=== PATIENT | male | born 1965 | race Caucasian/White ===

== ENCOUNTER → 2016-03-30 | Outpatient (CLI) | payer BC ==
[~2016-03-30] VITALS: Ht 180.3 cm; Wt 92.0 kg
[~2016-03-30] MED LIST: NS 1,000 ML IV SCH; PROPOFOL 200 MG/20 ML VIAL As Ordered ONE
--- NOTE | 2016-03-30 09:07 | ROOR ---
Patient Name: Stu Huertas Procedure Date: 03/30/2016 8:46 AM Date of : 1965 Age: 50 Room: [facility] Gender: Male Note Status: Finalized Procedure: Colonoscopy Indications: Screening for colorectal malignant neoplasm Providers: Samy LARA MD Referring MD: Nicola Varma MD Requesting Provider: Medicines: Monitored Anesthesia Care Complications: No immediate complications. Procedure: Pre-Anesthesia Assessment: - The heart rate, respiratory rate, oxygen saturations, blood pressure, adequacy of pulmonary ventilation, and response to care were monitored throughout the procedure. The Colonoscope was introduced through the anus and advanced to the cecum, identified by appendiceal orifice and ileocecal valve. The colonoscopy was performed without difficulty. The patient tolerated the procedure well. The quality of the bowel preparation was good. Findings: The perianal and digital rectal examinations were normal. (Exam: Complete, Prep: Good or Excellent.) A 4 mm polyp was found in the splenic flexure. The polyp was sessile. The polyp was removed with a cold snare. Resection and retrieval were complete. Many medium-mouthed diverticula were found in the sigmoid colon. There was evidence of diverticular spasm. Small Internal Hemorrhoids. The exam was otherwise without abnormality on direct and retroflexion views. Impression: - (Exam: Complete, Prep: Good or Excellent.) - One 4 mm polyp at the splenic flexure, removed with a cold snare. Resected and retrieved. - Diverticulosis in the sigmoid colon. - Small Internal Hemorrhoids. - The examination was otherwise normal on direct and retroflexion views. Recommendation: - Repeat colonoscopy in 5 years for surveillance. Samy Lara MD Samy LARA MD 03/30/2016 9:06:50 AM This report has been signed electronically. Number of Addenda: 0 Note Initiated On: 03/30/2016 8:46 AM Estimated Blood Loss: Estimated blood loss: none.
[2016-03-30 09:20] VITALS: BP 123/87
== END | disposition home or self-care (01) ==
LOC: M OPP 08:05
PROVIDERS: ATTEND Internal Medicine Gastroenterology
DX: Z12.11 Encounter for screening for malignant neoplasm of colon (principal); D12.3 Benign neoplasm of transverse colon; K57.30 Diverticulosis of large intestine without perforation or abscess without bleeding; K64.8 Other hemorrhoids

== ENCOUNTER → 2016-10-14 | Outpatient (REF) | payer BC ==
[2016-10-14 12:12] LABS: ALBUMIN 3.9 GM/DL (3.2-5.2); ALBUMIN/GLOBULIN RATIO 1.26 (1.00-1.93); ALKALINE PHOSPHATASE 86 U/L (45-117); ALT/SGPT 41 U/L (12-78); ANION GAP 8 MEQ/L (8-16); AST/SGOT 23 U/L (15-37); BILIRUBIN,TOTAL 0.6 MG/DL (0.2-1.0); BLOOD UREA NITROGEN 16 MG/DL (7-18); CALCIUM LEVEL 9.5 MG/DL (8.5-10.1); CARBON DIOXIDE LEVEL 26 MEQ/L (21-32); CHLORIDE LEVEL 111 MEQ/L (98-107); CHOLESTEROL LEVEL 166 MG/DL (<200); CREATININE FOR GFR 0.79 MG/DL (0.70-1.30); GLOMERULAR FILTRATION RATE > 60.0 (>56); GLUCOSE, FASTING 111 MG/DL (70-105); POTASSIUM SERUM 4.2 MEQ/L (3.5-5.1); SODIUM LEVEL 145 MEQ/L (136-145); TRIGLYCERIDES LEVEL 136 MG/DL (<150)
== END ==
LOC: M SFHCCLAY 07:20
PROVIDERS: ATTEND Family Medicine
DX: E78.2 Mixed hyperlipidemia (principal); Z12.5 Encounter for screening for malignant neoplasm of prostate; I10 Essential (primary) hypertension
CPT/HCPCS: 80053; 80061; 84443; G0103

== ENCOUNTER 2018-06-27 17:19 | Emergency (ER) | payer BC ==
[~2018-06-27] VITALS: Ht 180.3 cm; Wt 84.5 kg
--- NOTE | 2018-06-27 18:45 | REP ---
RIGHT KNEE, FIVE VIEWS: HISTORY: Knee pain. Postoperative change is present. There is no acute fracture or dislocation. There is moderate narrowing of the medial knee joint space and mild narrowing of the lateral knee joint space. There is mild narrowing of the patellofemoral joint space. Osteophytes are present on the femur, tibia and patella. IMPRESSION:Degenerative change as described above. Electronically Signed by Nicola Trevizo MD 06/27/2018 07:08 P
[2018-06-27] MEDS ORDERED: KETOROLAC 30 MG/ML VIAL (J1885) IV ONE (19:00)
[2018-06-27] MEDS ORDERED: NS 1,000 ML IV ONE (19:00)
[2018-06-27 19:37] LABS: BASO # 0.1 10^3/uL (0.0-0.2); BASO % 0.4 % (0.0-1.0); EOS % 0.2 % (0.0-3.0); HEMATOCRIT 44.4 % (42.0-52.0); HEMOGLOBIN 15.2 g/dl (13.5-17.5); LYMPH % 6.2 % (24.0-44.0); MEAN CORPUSCULAR HEMOGLOBIN 31.2 pg (27.0-33.0); MEAN CORPUSCULAR HGB CONC 34.2 g/dl (32.0-36.5); MEAN CORPUSCULAR VOLUME 91.2 fl (80.0-96.0); MONO # 1.3 10^3/uL (0.0-0.8); MONO % 7.6 % (0.0-5.0); NEUTROPHILS # 14.4 10^3/uL (1.8-7.7); NEUTROPHILS % 85.2 % (36.0-66.0); PLATELET COUNT, AUTOMATED 218 10^3/uL (150-450); RED BLOOD COUNT 4.87 10^6/uL (4.30-6.10); WHITE BLOOD COUNT 16.9 10^3/uL (4.0-10.0)
[2018-06-27] MEDS ORDERED: MORPHINE 4 MG/ML 1ML VIAL/SYRINGE (J2270) IV ONE (20:00)
[2018-06-27 20:06] LABS: BLOOD UREA NITROGEN 20 MG/DL (7-18); CALCIUM LEVEL 8.4 MG/DL (8.5-10.1); CARBON DIOXIDE LEVEL 27 MEQ/L (21-32); CHLORIDE LEVEL 105 MEQ/L (98-107); CREATININE FOR GFR 0.85 MG/DL (0.70-1.30); GLOMERULAR FILTRATION RATE > 60.0 (>56); GLUCOSE, FASTING 122 MG/DL (70-100); POTASSIUM SERUM 4.4 MEQ/L (3.5-5.1); SODIUM LEVEL 137 MEQ/L (136-145); URIC ACID 6.1 MG/DL (3.5-7.2)
[2018-06-27 21:27] LABS: MUCIN CLOT TEST 4+ (4+)
[2018-06-27 21:30] LABS: SOURCE, BODY FLUID URIC ACID RT KNEE
--- NOTE | 2018-06-27 21:40 | ER ---
DATE OF CONSULT: 06/27/2018 CHIEF COMPLAINT: Right knee pain and swelling. HISTORY OF PRESENT ILLNESS: This 53-year-old man was seen today in the emergency department at [facility]. He complains about 24 hours increase of pain and swelling to his right knee. 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 He feels like his knee was a little bit achy over the last week, as well as feeling a little bit of under the weather coryza-type symptoms. He was bit with a tick about a week and the tick swelled up. He removed the tick. Now, he is complaining about 24 hours of increased quite a bit of swelling and pain to the knee. There is no redness. There is no other constitutional symptoms at this point such as fever, chills, sweats at night, weight loss or other constitutional symptoms other than knee pain. There is no other hot, swollen joints. He has had two times gout flare in the past in his right great toe but this was back when he was eating quite a few rich foods, a few Thanksgivings ago. Now, he does not use any alcohol and tries to live by a more vegan diet, but he does eat quite a bit of legumes it sounds like. He has also been started on treatment with doxycycline for his tick bite. He has also had a history of anterior cruciate ligament (ACL) reconstruction on the same knee, but this was remotely, many years ago back in 1994 by a surgeon in [place], [place]. He has not had any trauma to the knee. PAST MEDICAL HISTORY: Healthy. MEDICATIONS: None. ALLERGIES: No known drug allergies. SURGICAL HISTORY: Right knee ACL reconstruction [address] Sal[address] in [place], [place]. This was a BTB graft. No concerns with that. He also had a hernia repair and a femur fracture when he was 15 years of age. 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 He smokes a little bit of marijuana, but he does not smoke cigarettes. He does not drink alcohol or do any other recreational drugs. PHYSICAL EXAMINATION: He is a well appearing 53-year-old man who looks stated age. Blood pressure is normal. Temperature 98.5. Pulse rate was 65. He is alert and oriented times three. His mood and affect are pleasant and positive. He is easy to get along with. Gait is not assessed. He is lying supine in the hospital bed. Left lower extremity is normal on inspection. On the right lower extremity, there is tense effusion. There is no obvious overlying redness, ecchymosis or other deformity or atrophy. No pain or problems with the hip, ankle or foot. Pain to palpation diffusely around the right knee. He has normal sensation throughout the foot in the superficial and deep peroneal nerves as well as saphenous, sural and tibial. Strong pedal pulses. He is able to wiggle his toes, dorsiflex and plantar flex his foot. The right knee is held in slight flexion. There is no pain with micromotion. There is a little bit of pain with active and passive range of motion of the knee, which was from nearly full extension to about 45 degrees of flexion. This is definitely sore for him. Ligamentous exam deferred. There is no redness again overlying the knee, but there is definitely some warmth there. Skin is intact. Surgical incision looks normal. Radiographs were obtained of the right knee. AP, two obliques and a sunrise view. This shows moderate medial compartment osteoarthritis. There is joint space narrowing. There is quite a bit of bone spurs. There are metal screws in the tibia and femur appropriately placed for ACL reconstruction. There is no obvious fracture. There is moderate patellofemoral osteoarthritis. There is no signs of calcification of the meniscus. There is obvious tense effusion as well as of prepatellar swelling. INVESTIGATIONS: Laboratory examination today revealed white blood cell count of 16. CRP was pending. Lyme titers pending. ASSESSMENT/PLAN: This is a 53-year-old man with right knee acute pain and swelling now over the last 24 hours with a history of gout, likely does have a gout flare at this point. Possible other differential diagnosis include pseudogout, septic arthritis, as well as Lyme disease flare from initial infection. I talked about pros and cons, the risks and benefits of going ahead with a right knee aspiration, which we have gone ahead and done in the emergency department today. We will follow up on the results of this as well, and I would like to keep him in the hospital for 1-2 hours until the Gram-stain has returned. PROCEDURE NOTE: I positioned the patient supine on the examining room table. They placed a bump under the right knee. I prepped the superolateral aspect of the right knee with chlorhexidine swab, allowed this to thoroughly dry. Used an 18-gauge needle and 60 mL syringe. I inserted the needle at the superolateral aspect of the knee, just underneath the patella. I withdrew 40 mL of straw-colored fluid with a tinge of blood at the end. There was no obvious purulence or foul smell. I withdrew the needle and recleaned the skin with gauze and placed a sterile bandage. I used sterile no touch techniques to perform the procedure. The fluid appears straw colored and fairly benign and consistent with acute gout. Certainly it does not have a purulent appearance, and so I am definitely less concerned that this may be an acute septic joint, and I would say does not warrant acute surgical intervention. I think the next most reasonable course of action will be to keep him in the hospital for approximately 1-2 hours to follow up on the acute Gram stain just to be sure. In addition, we can start Indomethacin 50 mg by mouth three times a day to start right now in the emergency department. I am happy to follow him up on an outpatient basis as well as following up on his Lyme titers and CRP. Thank you very much for involving me in this pleasant man's care. Sincerely,
[2018-06-27 21:54] LABS: SOURCE, BODY FLUID RT KNEE; SYNOVIAL FLUID COLOR PALE YELLOW (YELLOW)
[2018-06-27 22:12] LABS: SOURCE, BODY FLUID GLUCOSE RT KNEE
[2018-06-27 22:26] LABS: CRYSTALS, BODY FLUID NONE SEEN (NONE SEEN); SOURCE, BODY FLUID CRYSTALS RT KNEE
[2018-06-28] MEDS ORDERED: INDO50CA11 PO (00:21)
[2018-06-28 00:29] VITALS: BP 129/75
[2018-06-28 08:11] LABS: BODY FLUID RHEUMATOID SCREEN NEGATIVE (NEGATIVE)
[2018-06-30 00:06] LABS: Lyme Disease IgG/IgM Antibodie <0.91 ISR (0.00-0.90); Lyme Disease IgM Ab Quantitati <0.80 index (0.00-0.79)
== END 2018-06-28 00:30 | disposition home or self-care (01) ==
LOC: M ED 17:19
DX: M17.11 Unilateral primary osteoarthritis, right knee (principal); M25.461 Effusion, right knee; E86.0 Dehydration; R79.89 Other specified abnormal findings of blood chemistry; W57.XXXA Bitten or stung by nonvenomous insect and other nonvenomous arthropods, initial encounter; Y92.89 Other specified places as the place of occurrence of the external cause; M10.071 Idiopathic gout, right ankle and foot
CPT/HCPCS: 20610; 36415; 73564; 80048; 82945; 83872; 84550; 84560; 85025; 85652; 86140; 86430; 86617; 87070; 87205; 89050; 89060; 96361; 96374; 96375; 99284; J1885; J2270

== ENCOUNTER 2021-05-30 09:37 | Day surgery (SDC) | payer BC ==
[~2021-05-30] VITALS: Ht 180.3 cm; Wt 86.2 kg
[~2021-05-30 09:37] MED LIST changes: +INDO50CA91 PO; -NS 1,000 ML IV SCH; -PROPOFOL 200 MG/20 ML VIAL As Ordered ONE
[2021-05-30] MEDS ORDERED: propofoL 200 MG/20 ML VIAL As Ordered ONE ×2 (10:15→11:20)
[2021-05-30] MEDS ORDERED: LIDOCAINE 2% 100MG/5ML SDV (FOR ANES.) As Ordered ONE (10:16)
[2021-05-30] MEDS ORDERED: NS 1,000 ML IV ONE (10:20)
[2021-05-30] MEDS ORDERED: GLUCAGON INJ 1MG VIAL As Ordered ONE (11:18)
[2021-05-30 11:57] VITALS: BP 136/84
== END 2021-05-30 11:59 | disposition home or self-care (01) ==
LOC: M OPP 09:37
PROVIDERS: ATTEND Internal Medicine Gastroenterology
DX: Z12.11 Encounter for screening for malignant neoplasm of colon (principal); Z86.010 Personal history of colon polyps; K57.30 Diverticulosis of large intestine without perforation or abscess without bleeding; K64.8 Other hemorrhoids
CPT/HCPCS: 45378; J1610